=== PATIENT | female | born 1985 | race Caucasian/White ===

== ENCOUNTER 2018-01-07 08:03 | Emergency (ER) | payer OTHER ==
[~2018-01-07] VITALS: Ht 165.1 cm; Wt 76.2 kg
[~2018-01-07 08:03] MED LIST: AMPICILLIN TRI500 MG PO; DOCUSATE SODIU100 MG PO; FLAGYL500MG PO; Mylicon 125MG PO; OXYC1TAB9 PO; PRENATE ADVANCE PO
[2018-01-07] MEDS ORDERED: INTESTINEX680 M1 PO ×2 (15:52)
[2018-01-07] MEDS ORDERED: PROTONIX40 MG PO (15:52)
== END 2018-01-07 19:11 | disposition home or self-care (01) ==
LOC: ER 08:03
DX: R19.7 Diarrhea, unspecified (principal); E86.0 Dehydration